=== PATIENT | female | born 1960 | race Caucasian/White ===

== ENCOUNTER 2016-10-02 06:43 | Day surgery (SDC) | payer OTHER ==
--- NOTE | ~2016-10-02 | EGD ---
EGD REPORT [facility] [address] [place] [address] NAME: LETTY GOTTLIEB : 60 STATUS : REG [facility]#: [id number] AGE: 56 ADM/REG DATE : 10/02/16 MR#: [id number] REPORT SERV DATE: 10/02/16 DICTATED BY: ROSELYN MANDUJANO DATE: 10/02/16 REPORT STATUS : Draft [facility]: [facility] DATE: 10/02/16 [facility] Center Patient Name: Letty Gottlieb Date of : 1960 Attending MD: ROSELYN MANDUJANO MD Procedure Date No Time: 10/02/2016 Procedure: Upper GI endoscopy Indications: Heartburn, Diarrhea; no acid suppression. Patient Profile: Informed consent was obtained from the patient by me prior to the procedure. Risks, benefits, and alternatives were discussed including the risk of bleeding, perforation, infection, reaction to medicine, missed lesion, and cardiopulmonary complications. Referring MD: NIKKY THURSTON MD Medicines: Monitored Anesthesia Care Complications: No immediate complications. Procedure: Pre-Anesthesia Assessment: - ASA Grade Assessment: II - A patient with mild systemic disease. After obtaining informed consent, the endoscope was passed under direct vision. Throughout the procedure, the patient's blood pressure, pulse, and oxygen saturations were monitored continuously. The GIF [id number] was introduced through the mouth, and advanced to the third part of duodenum. The endoscope was withdrawn with careful examination all mucosal surfaces including retroflexion stomach. The upper GI endoscopy was accomplished without difficulty. The patient tolerated the procedure well. Findings: The first part of the duodenum, 2nd part of the duodenum and 3rd part of the duodenum were normal. Biopsies were taken with a cold forceps for histology. The entire examined stomach was normal; Lap band intact (down completely). The examined esophagus was normal. LA Grade A (one or more mucosal breaks less than 5 mm, not extending between tops of 2 mucosal folds) esophagitis was found, no nodules. The esophagus and gastroesophageal junction were examined with white light. There was no visual evidence of [place]'s esophagus. Impression: - Normal first part of the duodenum, 2nd part of the duodenum and 3rd part of the duodenum. Biopsied. - Normal stomach. EGD REPORT [address] [address] NAME: LETTY GOTTLIEB : 60 STATUS : REG [facility] PAT#: [id number] AGE: 56 ADM/REG DATE : 10/02/16 MR#: [id number] REPORT SERV DATE: 10/02/16 DICTATED BY: ROSELYN MANDUJANO DATE: 10/02/16 REPORT STATUS : Draft TRANSCRIBED BY: [email or web address] DATE: 10/02/16 - Normal esophagus. - LA Grade A reflux esophagitis. - There is no endoscopic evidence of [place]'s esophagus. Recommendation: - Patient has a contact number available for emergencies. The signs and symptoms of potential delayed complications were discussed with the patient. Return to normal activities tomorrow. Written discharge instructions were provided to the patient. - Regular diet. - Await pathology results. - Zantac 150mg daily. - Try Welchol for intermittent diarrhea (s/p CCx). Procedure Code(s): --- Professional --- 33803, Esophagogastroduodenoscopy, flexible, transoral; with biopsy, single or multiple Diagnosis Code(s): --- Professional --- K21.0, Gastro-esophageal reflux disease with esophagitis R12, Heartburn R19.7, Diarrhea, unspecified CPT copyright 2013 [employer]. All rights reserved. The codes documented in this report are preliminary and upon manager film review may be revised to meet current compliance requirements. ROSELYN MANDUJANO MD 10/02/2016 8:01 AM This report has been signed electronically. Number of Addenda: 0 Note Initiated On: 10/02/2016 7:35 AM Scope Withdrawal Time 0 hours 0 minutes 0 seconds [address] [place] [address]
[~2016-10-02 06:43] MED LIST: ASA5GR PO; ATEN50 PO; CYMBALTA30 PO; EFFEX75; FARXIGA5 PO; FORTAMET500 MG PO; JARDI25B PO; KLONO5 PO; MULTIPLE VIT PO; PRISTIQ50 MG PO; SLEEPING PILL; TRULICITY1.5 MG/0.5 SQ; VICTOZA18 MG/3 ML SC; XIFAXAN550 MG; ZESTRIL20 MG PO
== END 2016-10-02 23:59 | disposition home health service (06) ==
LOC: DMU 06:43
PROVIDERS: Internal Medicine Gastroenterology
PROC: 0DB98ZX Excision of Duodenum, Via Natural or Artificial Opening Endoscopic, Diagnostic (ICD-10-PCS; principal; 2016-10-02 08:00)
DX: K29.80 Duodenitis without bleeding (principal); K21.0 Gastro-esophageal reflux disease with esophagitis; I10 Essential (primary) hypertension; G43.909 Migraine, unspecified, not intractable, without status migrainosus; G47.33 Obstructive sleep apnea (adult) (pediatric); E11.9 Type 2 diabetes mellitus without complications; E66.9 Obesity, unspecified; F41.9 Anxiety disorder, unspecified; F32.9 Major depressive disorder, single episode, unspecified; Z88.5 Allergy status to narcotic agent; Z90.49 Acquired absence of other specified parts of digestive tract; Z90.710 Acquired absence of both cervix and uterus; Z98.890 Other specified postprocedural states
CPT/HCPCS: 82962; 88305